=== PATIENT | male | born 1980 | race Caucasian/White ===

== ENCOUNTER 2017-02-24 15:36 | Inpatient (IN) | payer MEDICARE ==
[~2017-02-24] VITALS: Ht 170.2 cm; Wt 77.1 kg
[~2017-02-24 15:36] MED LIST: DIVA500T69 PO; OLAN10TA6 PO
[2017-02-24] MEDS ORDERED: LORazepam 2 MG TABLET ONE (18:20)
[2017-02-24] MEDS ORDERED: HALOPERIDOL 10 MG TABLET ONE (18:20)
[2017-02-24 18:27] VITALS: BP 124/54
[2017-02-24] MEDS ORDERED: INFLUENZA VIRUS VACCINE QVS 2017-18 (3YR+)/PF 60 MCG/0.5 ML SYRINGE IM ONE (18:45)
[2017-02-24] MEDS: LORazepam 2 MG TABLET PO PRN (18:53)
[2017-02-25 07:00] VITALS: BP 122/60
[2017-02-25] MEDS ORDERED: ACETAMINOPHEN 325 MG TABLET PO PRN (08:45)
[2017-02-25] MEDS ORDERED: MAG HYDROX/AL HYDROX/SIMETH ES 30 ML SUSPENSION UDCUP PO PRN (08:45)
[2017-02-25] MEDS ORDERED: BACITRACIN 28.4 GM OINTMENT TP PRN (08:45)
[2017-02-25] MEDS ORDERED: ONDANSETRON HCL 4 MG TABLET PO PRN (08:45)
[2017-02-25] MEDS ORDERED: ALBUTEROL SULFATE HFA 90 MCG/PUFF 8 GM INHALER IH PRN (08:45)
[2017-02-25] MEDS ORDERED: LOPERAMIDE HCL 2 MG CAPSULE PO PRN (08:45)
[2017-02-25] MEDS ORDERED: CloNIDine HCL 0.1 MG TABLET PO PRN (08:45)
[2017-02-25] MEDS ORDERED: PETROLATUM,WHITE 71 GM JELLY TP PRN (08:45)
[2017-02-25] MEDS ORDERED: MAGNESIUM HYDROXIDE SUSPENSION 30 ML UDCUP PO PRN (08:45)
[2017-02-25] MEDS ORDERED: BENZOCAINE/MENTHOL LOZENGE MM PRN (08:45)
[2017-02-25] MEDS: DIVALPROEX SODIUM 500 MG DR TABLET PO SCH (21:00)
[2017-02-25] MEDS: OLANZapine 10 MG TABLET PO SCH (21:00)
[2017-02-26] MEDS: LORazepam 2 MG TABLET PO PRN ×3 (01:12→17:53)
[2017-02-26] MEDS: IBUPROFEN 600 MG TABLET PO PRN (01:16)
[2017-02-26] MEDS: DIVALPROEX SODIUM 500 MG DR TABLET PO SCH ×2 (09:00→20:15)
[2017-02-26] MEDS: OLANZapine 10 MG TABLET PO SCH ×2 (09:00→20:15)
[2017-02-26] MEDS: ZOLPIDEM TARTRATE 10 MG TABLET PO PRN (20:15)
[2017-02-27] MEDS: IBUPROFEN 600 MG TABLET PO PRN (06:13)
[2017-02-27] MEDS: OLANZapine 10 MG TABLET PO SCH ×2 (08:54→20:15)
[2017-02-27] MEDS: LORazepam 2 MG TABLET PO PRN ×2 (08:54→18:19)
[2017-02-27] MEDS: DIVALPROEX SODIUM 500 MG DR TABLET PO SCH ×2 (09:00→20:15)
[2017-02-27] MEDS: ZOLPIDEM TARTRATE 10 MG TABLET PO PRN (20:15)
[2017-02-28] MEDS: LORazepam 2 MG TABLET PO PRN ×3 (01:49→17:13)
[2017-02-28 07:14] VITALS: BP 120/80
[2017-02-28] MEDS: OLANZapine 10 MG TABLET PO SCH ×2 (08:45→20:29)
[2017-02-28] MEDS: DIVALPROEX SODIUM 500 MG DR TABLET PO SCH ×2 (08:45→20:29)
[2017-02-28] MEDS: ZOLPIDEM TARTRATE 10 MG TABLET PO PRN (20:30)
[2017-03-01 08:30] VITALS: BP 107/67
[2017-03-01] MEDS: DIVALPROEX SODIUM 500 MG DR TABLET PO SCH ×2 (08:38→20:26)
[2017-03-01] MEDS: OLANZapine 10 MG TABLET PO SCH ×2 (08:38→20:26)
[2017-03-01] MEDS: LORazepam 2 MG TABLET PO PRN ×3 (08:39→20:26)
[2017-03-01] MEDS: ZOLPIDEM TARTRATE 10 MG TABLET PO PRN (20:27)
[2017-03-02 06:10] VITALS: BP 104/68
[2017-03-02 08:31] VITALS: BP 108/60
[2017-03-02] MEDS: DIVALPROEX SODIUM 500 MG DR TABLET PO SCH ×2 (09:00→20:14)
[2017-03-02] MEDS: OLANZapine 10 MG TABLET PO SCH ×2 (09:00→20:14)
[2017-03-02] MEDS: LORazepam 2 MG TABLET PO PRN ×2 (09:35→18:14)
[2017-03-02] MEDS: ZOLPIDEM TARTRATE 10 MG TABLET PO PRN (20:14)
[2017-03-03 04:17] VITALS: BP 113/69
[2017-03-03 08:34] VITALS: BP 107/73
[2017-03-03] MEDS: DIVALPROEX SODIUM 500 MG DR TABLET PO SCH ×2 (09:00→20:52)
[2017-03-03] MEDS: OLANZapine 10 MG TABLET PO SCH ×2 (09:00→20:52)
[2017-03-03] MEDS: LORazepam 2 MG TABLET PO PRN ×2 (09:44→16:06)
[2017-03-03 16:00] VITALS: BP 114/67
[2017-03-03] MEDS: ZOLPIDEM TARTRATE 10 MG TABLET PO PRN (20:52)
[2017-03-04 04:00] VITALS: BP 132/77
[2017-03-04 08:15] VITALS: BP 127/72
[2017-03-04] MEDS: DIVALPROEX SODIUM 500 MG DR TABLET PO SCH (09:00)
[2017-03-04] MEDS ORDERED: ARIPiprazole ER SUSPENSION 400 MG VIAL IM ONE (09:45)
[2017-03-04] MEDS: OLANZapine 10 MG TABLET PO SCH (09:55)
[2017-03-04] MEDS ORDERED: DIVA250T4 PO (09:57)
[2017-03-04] MEDS ORDERED: DIVA500T35 PO ×2 (09:58)
[2017-03-04] MEDS ORDERED: OLAN10TA6 PO (10:00)
[2017-03-04] MEDS ORDERED: ARIPiprazole ER SUSPENSION 400 MG PRE-FILLED DUAL CHAMBER SYRINGE IM SCH (10:15)
[2017-03-04] MEDS ORDERED: ARIPiprazole ER SUSPENSION 400 MG VIAL IM SCH (10:15)
== END 2017-03-04 13:40 | disposition short-term general hospital (02) | DRG 885 ==
LOC: B3A 18:17
PROVIDERS: ADMIT Psychiatry & Neurology Child & Adolescent Psychiatry; ATTEND Psychiatry & Neurology Child & Adolescent Psychiatry
DX: F25.0 Schizoaffective disorder, bipolar type (principal); F29 Unspecified psychosis not due to a substance or known physiological condition; F12.10 Cannabis abuse, uncomplicated; F31.9 Bipolar disorder, unspecified; F17.200 Nicotine dependence, unspecified, uncomplicated; G47.00 Insomnia, unspecified; K21.9 Gastro-esophageal reflux disease without esophagitis; F60.9 Personality disorder, unspecified; S90.821A Blister (nonthermal), right foot, initial encounter; S90.822A Blister (nonthermal), left foot, initial encounter; X58.XXXA Exposure to other specified factors, initial encounter; Y93.89 Activity, other specified; Z59.0 Homelessness; Z91.19 Patient's noncompliance with other medical treatment and regimen; Y92.89 Other specified places as the place of occurrence of the external cause; Z88.0 Allergy status to penicillin
CPT/HCPCS: 87081; J0401